=== PATIENT | female | born 1985 | race Hispanic/Latino ===

== ENCOUNTER 2022-01-20 21:14 | Emergency (ER) | payer OTHER ==
[2022-01-20] MEDS ORDERED: Ketorolac Tromethamine 30 MG/ML VIAL ONE (22:25)
== END 2022-01-20 22:25 | disposition home or self-care (01) ==
LOC: CSHERS 21:14
DX: K04.7 Periapical abscess without sinus (principal); E10.9 Type 1 diabetes mellitus without complications; Z79.4 Long term (current) use of insulin
CPT/HCPCS: 96372; 99282; J1885

== ENCOUNTER 2022-08-25 18:00 | Inpatient (IN) | payer OTHER ==
[2022-08-25 19:07] LABS: Actual Bicarbonate (HCO3a) 14.1 mEq/L (22-28); CO2 Tension 29.8 mmHg (35.0-45.0); Calcium, Ionized (arterial) 1.27 mmol/L (1.12-1.30); Carboxyhemoglobin (COHb) 0.6 gm% (0.0-3.0); Critical Notified By: CP.PH; Hemoglobin (Hb) 12.7 g/dL (12.0-16.0); O2 Tension (PaO2), arterial 102.4 mmHg (80.0-100.0); Potassium - ABG Lab 4.4 mmol/L (3.70-5.30); Puncture Site RRA; RapidComm Collect By CP.PH; pH, Arterial 7.29 (7.35-7.45)
[2022-08-25 19:19] LABS: BHCG - Serum Negative (NEGATIVE); Pregs Control Background? CLEAR/WHITE (CLR/WHITE); Pregs Control Bar Appear? YES (CONTROL BAR)
[2022-08-25 19:22] LABS: #Eosinphils 0.1 10x3/uL (0.0-0.5); #Monocytes 0.3 10x3/uL (0.0-1.1); #Neutrophils 5.7 10x3/uL (1.5-8.4); %Basophils 0.5 % (0.0-2.0); %Eosinophils 0.8 % (0.0-6.0); %Lymphocytes 18.6 % (18.0-47.0); %Monocytes 4.2 % (0.0-10.0); %Neutrophils 75.4 % (40.0-75.0); ALT (SGPT) 27 U/L (8-55); AST (SGOT) 18 U/L (5-34); Albumin 4.4 g/dL (3.5-5.0); Alkaline Phosphatase 166 U/L (40-110); Anion Gap 26 mmol/L (10-20); BUN (Urea Nitrogen) 16 mg/dL (7.0-18.7); Bilirubin, Total 0.5 mg/dL (0.2-1.2); Calc. Creatinine Clearance 0 mL/min (70-130); Calcium 9.4 mg/dL (7.8-10.44); Carbon Dioxide 13 mmol/L (22-29); Chloride 97 mmol/L (98-107); Estimated GFR 66; Globulin 3.1 g/dL (2.4-3.5); Hemoglobin 12.3 g/dL (12.0-15.5); Mean Corpuscular HGB CONC 33.2 g/dL (32.0-36.0); Mean Corpuscular Hemoglobin 28.7 pg (27.0-33.0); Mean Corpuscular Volume 86.7 fl (81.6-98.3); Mean Platelet Volume 11.3 fl (7.4-10.4); Platelet Count 283 10x3/uL (150-450); Potassium 4.6 mmol/L (3.5-5.1); Protein, Total 7.5 g/dL (6.0-8.3); RBC Distribution Width 12.8 % (11.5-14.5); Red Blood Cell (RBC) Count 4.28 10x6/uL (3.90-5.03); Sodium 131 mmol/L (136-145); White Blood Cell (WBC) Count 7.6 10x3/uL (3.5-10.5)
[2022-08-25 19:26] LABS: Glucose 505 mg/dL (70-105)
[2022-08-25] MEDS ORDERED: INSULIN REGULAR IN 0.9 % NACL 100 UNIT/100 ML BAG ONE (19:32)
[2022-08-25 19:36] LABS: Bilirubin Neg (Negative); Blood, Urine Negative (Negative); Clarity Clear (Clear); Glucose, Urine (Dipstick) >=1000 mg/dL (Negative); Ketone, Urine 150 mg/dL (Negative); Leukocyte Negative (Negative); Nitrite Negative (Negative); Protein, Urine (Dipstick) 15 mg/dl (Neg-Trace); Urobilinogen Normal mg/dL (Less than 2)
[2022-08-25 19:38] LABS: Pregnancy Test - Urine (BHCG) Negative (Negative); Pregu Control Background? CLEAR/WHITE (CLR/WHITE); Pregu Control Bar Appear? YES (CONTROL BAR)
[2022-08-25] MEDS ORDERED: Ondansetron PF 4 MG/2 ML Vial IVP PRN (19:50)
[2022-08-25] MEDS ORDERED: Guaifenesin DM 100-10/5 ML UDCUP PO PRN (19:50)
[2022-08-25] MEDS ORDERED: Ventolin HFA Inhaler 60 PUFF INHALER INH PRN (19:56)
[2022-08-25] MEDS ORDERED: Ondansetron PF 4 MG/2 ML Vial ONE (19:58)
[2022-08-25] MEDS ORDERED: INSULIN REGULAR IN 0.9 % NACL 100 UNIT in Premix Bag 1 BAG IVPB SCH (20:00)
[2022-08-25 20:13] LABS: Acetaminophen Less than 10.0 mcg/mL (10.0-30.0); Alcohol Less than 10 mg/dL (Less than 10); Salicylate Less than 8.0 mg/dL (15.0-30.0)
[2022-08-25] MEDS ORDERED: Famotidine/PF 20 mg/2ml Vial SLOW IVP SCH (21:00)
[2022-08-25 21:03] LABS: SARS-CoV-2 NAA Rapid Test Not Detected (NotDetected)
[2022-08-25 21:46] VITALS: BMI 16.5
[2022-08-25] MEDS: Acetaminophen 325 MG TAB PO PRN (22:06)
[2022-08-25] MEDS: Senokot S 8.6-50 MG TAB PO SCH (22:07)
[2022-08-25] MEDS: levETIRAcetam 500 MG TAB PO SCH (22:07)
[2022-08-25] MEDS ORDERED: SOAP SUDS ENEMA PR SCH (22:15)
[2022-08-25] MEDS: Lactated Ringer's 1,000 ML IV SCH (22:19)
[2022-08-25] MEDS: Dextrose 5%-Lactated Ringers 1,000 ML IV SCH (22:19)
[2022-08-25] MEDS ORDERED: Bisacodyl 10 MG SUPP PR PRN (23:16)
[2022-08-25 23:57] LABS: Anion Gap 15 mmol/L (10-20); BUN (Urea Nitrogen) 10 mg/dL (7.0-18.7); Calc. Creatinine Clearance 66 mL/min (70-130); Carbon Dioxide 18 mmol/L (22-29); Chloride 107 mmol/L (98-107); Estimated GFR 103; Glucose 125 mg/dL (70-105); Magnesium 1.6 mg/dL (1.6-2.6); Potassium 3.3 mmol/L (3.5-5.1); Sodium 137 mmol/L (136-145)
[2022-08-26 00:16] LABS: Phosphorus 1.4 mg/dL (2.3-4.7)
[2022-08-26] MEDS ORDERED: Potassium Chloride 20 MEQ TAB PO SCH (00:45)
[2022-08-26] MEDS ORDERED: Magnesium 2 GM/50 ML(in water) 2 GM in Premix Bag 1 BAG IVPB SCH (00:45)
[2022-08-26] MEDS ORDERED: Potassium Phosphate 30 MMOL in Sodium Chloride 0.9% 250 ML 250 ML IVPB SCH (01:00)
[2022-08-26 02:23] LABS: Amphetamine Not Detected (NotDetected); Barbiturates Screen Not Detected (NotDetected); Benzodiazepine Screen Not Detected (NotDetected); Cocaine Metabolite Screen Not Detected (NotDetected); Methadone Not Detected (NotDetected); Methamphetamine Not Detected (NotDetected); Opiate Screen Not Detected (NotDetected); Oxycodone Screen Not Detected (NotDetected); Phencyclidine (PCP) Not Detected (NotDetected); THC/Cannabinoid Screen Not Detected (NotDetected); Tricyclic Screen Not Detected (NotDetected)
[2022-08-26] MEDS: Acetaminophen 325 MG TAB PO PRN ×2 (03:34→12:15)
[2022-08-26 03:47] LABS: #Basophils 0.1 10x3/uL (0.0-0.2); #Eosinphils 0.2 10x3/uL (0.0-0.5); #Monocytes 0.6 10x3/uL (0.0-1.1); #Neutrophils 4.6 10x3/uL (1.5-8.4); %Basophils 0.7 % (0.0-2.0); %Eosinophils 2.6 % (0.0-6.0); %Lymphocytes 28.6 % (18.0-47.0); %Monocytes 7.5 % (0.0-10.0); %Neutrophils 60.3 % (40.0-75.0); Hemoglobin 11.1 g/dL (12.0-15.5); Mean Corpuscular HGB CONC 32.8 g/dL (32.0-36.0); Mean Corpuscular Hemoglobin 28.7 pg (27.0-33.0); Mean Corpuscular Volume 87.3 fl (81.6-98.3); Mean Platelet Volume 10.9 fl (7.4-10.4); Platelet Count 238 10x3/uL (150-450); RBC Distribution Width 12.9 % (11.5-14.5); Red Blood Cell (RBC) Count 3.87 10x6/uL (3.90-5.03); White Blood Cell (WBC) Count 7.6 10x3/uL (3.5-10.5)
[2022-08-26 03:49] LABS: Actual Bicarbonate (HCO3v) 18 mEq/L (22-28); Base Excess -6.2 mEq/L (-2 - +2); Calcium, Ionized (venous) 1.04 mmol/L (1.16-1.32); Chloride (VBG) 105 mmol/L (98-106); Critical Notified By: CP.PH; Hemoglobin (Hb) 11.9 g/dL (11.7-15.5); Potassium (VBG) 3.95 mmol/L (3.70-5.30); Puncture Site Other Site; Sodium 138.3 mmol/L (133-146); pH (venous) 7.37 (7.32-7.43)
[2022-08-26 04:07] LABS: Anion Gap 14 mmol/L (10-20); BUN (Urea Nitrogen) 8 mg/dL (7.0-18.7); Calc. Creatinine Clearance 69 mL/min (70-130); Carbon Dioxide 18 mmol/L (22-29); Chloride 107 mmol/L (98-107); Estimated GFR 108; Glucose 129 mg/dL (70-105); Magnesium 2.5 mg/dL (1.6-2.6); Potassium 3.9 mmol/L (3.5-5.1); Sodium 135 mmol/L (136-145)
[2022-08-26] MEDS: Lactated Ringer's 1,000 ML IV SCH ×3 (04:21→19:40)
[2022-08-26] MEDS: Dextrose 5%-Lactated Ringers 1,000 ML IV SCH (06:41)
[2022-08-26] MEDS: levETIRAcetam 500 MG TAB PO SCH ×3 (08:37→20:16)
[2022-08-26] MEDS: Multivitamin W/ Minerals 1 TAB PO SCH ×2 (08:37→11:20)
[2022-08-26] MEDS: Senokot S 8.6-50 MG TAB PO SCH ×3 (08:37→20:16)
[2022-08-26] MEDS: Polyethylene Glycol 3350 17 GM Packet PO SCH ×2 (08:38→11:21)
[2022-08-26] MEDS: Pancrelipase DR 12,000 1 CAP PO SCH ×3 (08:38→17:23)
[2022-08-26] MEDS: Famotidine/PF 20 mg/2ml Vial SLOW IVP SCH ×2 (08:38→20:17)
[2022-08-26 08:39] LABS: Anion Gap 16 mmol/L (10-20); BUN (Urea Nitrogen) 7 mg/dL (7.0-18.7); Calc. Creatinine Clearance 71 mL/min (70-130); Calcium 7.7 mg/dL (7.8-10.44); Carbon Dioxide 17 mmol/L (22-29); Chloride 107 mmol/L (98-107); Estimated GFR 112; Glucose 210 mg/dL (70-105); Magnesium 2.2 mg/dL (1.6-2.6); Phosphorus 3.4 mg/dL (2.3-4.7); Potassium 4.5 mmol/L (3.5-5.1); Sodium 135 mmol/L (136-145)
[2022-08-26] MEDS ORDERED: FLU VACC QS2022-23(6MOS UP)/PF 60 MCG/0.5 ML SYRINGE IM ONE (09:00)
[2022-08-26 10:59] LABS: Anion Gap 11 mmol/L (10-20); BUN (Urea Nitrogen) 6 mg/dL (7.0-18.7); Calc. Creatinine Clearance 77 mL/min (70-130); Calcium 7.7 mg/dL (7.8-10.44); Carbon Dioxide 23 mmol/L (22-29); Chloride 109 mmol/L (98-107); Estimated GFR 117; Glucose 118 mg/dL (70-105); Magnesium 2.1 mg/dL (1.6-2.6); Potassium 3.6 mmol/L (3.5-5.1); Sodium 139 mmol/L (136-145)
[2022-08-26 11:37] LABS: Phosphorus 1.6 mg/dL (2.3-4.7)
[2022-08-26] MEDS ORDERED: Lantus 1000 UNITS/10 ML VIAL SC SCH (12:00)
[2022-08-26] MEDS: Sodium Chloride 0.45% 1,000 ML IV SCH (12:13)
[2022-08-26] MEDS ORDERED: Dextrose 50% Abboject 50 ML SYRINGE SLOW IVP PRN (12:49)
[2022-08-26] MEDS ORDERED: Dextrose 5% in Water 1,000 ML IV PRN (12:49)
[2022-08-26] MEDS: Fioricet 325/50/40 mg Tablet PO PRN (13:38)
[2022-08-26 14:27] LABS: Hemoglobin A1c 12.4 % (4.0-6.0)
[2022-08-26] MEDS: HumaLOG 300 UNITS/3 ML VIAL SC PRN (15:23)
[2022-08-26] MEDS: Lantus 1000 UNITS/10 ML VIAL SC SCH (20:17)
[2022-08-27] MEDS: Sodium Chloride 0.45% 1,000 ML IV SCH ×2 (00:50→14:13)
[2022-08-27] MEDS: Lactated Ringer's 1,000 ML IV SCH ×3 (04:43→20:02)
[2022-08-27] MEDS: Pancrelipase DR 12,000 1 CAP PO SCH ×3 (08:27→17:30)
[2022-08-27] MEDS: levETIRAcetam 500 MG TAB PO SCH ×2 (08:27→20:27)
[2022-08-27] MEDS: Senokot S 8.6-50 MG TAB PO SCH ×2 (08:27→20:27)
[2022-08-27] MEDS: Multivitamin W/ Minerals 1 TAB PO SCH (08:27)
[2022-08-27] MEDS: Famotidine/PF 20 mg/2ml Vial SLOW IVP SCH ×2 (08:28→20:27)
[2022-08-27] MEDS: Polyethylene Glycol 3350 17 GM Packet PO SCH (08:28)
[2022-08-27] MEDS: Lantus 1000 UNITS/10 ML VIAL SC SCH ×2 (08:42→20:27)
[2022-08-27] MEDS ORDERED: Lantus 1000 UNITS/10 ML VIAL SC SCH (09:00)
[2022-08-27 09:17] LABS: Anion Gap 10 mmol/L (10-20); BUN (Urea Nitrogen) 4 mg/dL (7.0-18.7); Calc. Creatinine Clearance 89 mL/min (70-130); Calcium 8.5 mg/dL (7.8-10.44); Carbon Dioxide 25 mmol/L (22-29); Chloride 103 mmol/L (98-107); Estimated GFR 121; Glucose 146 mg/dL (70-105); Phosphorus 1.6 mg/dL (2.3-4.7); Potassium 3.4 mmol/L (3.5-5.1); Sodium 135 mmol/L (136-145)
[2022-08-27] MEDS: Fioricet 325/50/40 mg Tablet PO PRN (09:29)
[2022-08-27] MEDS: HumaLOG 300 UNITS/3 ML VIAL SC PRN (11:30)
[2022-08-27] MEDS ORDERED: Potassium Chloride 20 MEQ TAB PO SCH (11:45)
[2022-08-27] MEDS ORDERED: Electrolyte Replacement Protocol 1 EACH FS SCH (11:45)
[2022-08-27] MEDS ORDERED: Potassium Phosphate 30 MMOL in Sodium Chloride 0.9% 250 ML 250 ML IVPB SCH (11:45)
[2022-08-27] MEDS: Metoclopramide HCl 10 MG/2 ML VIAL IVP SCH ×2 (17:30→20:27)
[2022-08-27] MEDS ORDERED: Mineral Oil ENEMA PR SCH (18:00)
[2022-08-27] MEDS ORDERED: Mineral Oil ENEMA PR PRN (18:00)
[2022-08-28] MEDS: Lactated Ringer's 1,000 ML IV SCH ×2 (01:07→01:20)
[2022-08-28 05:25] LABS: #Eosinphils 0.2 10x3/uL (0.0-0.5); #Monocytes 0.6 10x3/uL (0.0-1.1); #Neutrophils 4.3 10x3/uL (1.5-8.4); %Basophils 0.5 % (0.0-2.0); %Lymphocytes 39.6 % (18.0-47.0); %Monocytes 6.6 % (0.0-10.0); %Neutrophils 51.1 % (40.0-75.0); Hemoglobin 10.9 g/dL (12.0-15.5); Mean Corpuscular HGB CONC 32.9 g/dL (32.0-36.0); Mean Corpuscular Hemoglobin 28.7 pg (27.0-33.0); Mean Corpuscular Volume 87.1 fl (81.6-98.3); Mean Platelet Volume 11.4 fl (7.4-10.4); Platelet Count 220 10x3/uL (150-450); RBC Distribution Width 12.8 % (11.5-14.5); White Blood Cell (WBC) Count 8.5 10x3/uL (3.5-10.5)
[2022-08-28 05:41] LABS: Anion Gap 10 mmol/L (10-20); BUN (Urea Nitrogen) 7 mg/dL (7.0-18.7); Calc. Creatinine Clearance 92 mL/min (70-130); Calcium 8.6 mg/dL (7.8-10.44); Carbon Dioxide 26 mmol/L (22-29); Chloride 106 mmol/L (98-107); Estimated GFR 123; Glucose 56 mg/dL (70-105); Phosphorus 2.2 mg/dL (2.3-4.7); Potassium 3.4 mmol/L (3.5-5.1); Sodium 139 mmol/L (136-145)
[2022-08-28] MEDS: Sodium Chloride 0.45% 1,000 ML IV SCH ×2 (06:19→22:00)
[2022-08-28] MEDS ORDERED: Potassium Chloride 20 MEQ TAB PO SCH (08:00)
[2022-08-28] MEDS ORDERED: Magnesium 2 GM/50 ML(in water) 2 GM in Premix Bag 1 BAG IVPB SCH (08:00)
[2022-08-28] MEDS: Metoclopramide HCl 10 MG/2 ML VIAL IVP SCH ×5 (10:46→21:03)
[2022-08-28] MEDS: levETIRAcetam 500 MG TAB PO SCH ×2 (10:47→21:01)
[2022-08-28] MEDS: Famotidine/PF 20 mg/2ml Vial SLOW IVP SCH ×2 (10:47→21:03)
[2022-08-28] MEDS: Polyethylene Glycol 3350 17 GM Packet PO SCH (10:47)
[2022-08-28] MEDS: Multivitamin W/ Minerals 1 TAB PO SCH (10:47)
[2022-08-28] MEDS: Senokot S 8.6-50 MG TAB PO SCH ×2 (10:48→21:00)
[2022-08-28] MEDS: Pancrelipase DR 12,000 1 CAP PO SCH ×3 (10:51→17:44)
[2022-08-28] MEDS: Lantus 1000 UNITS/10 ML VIAL SC SCH ×2 (10:56→21:13)
[2022-08-28] MEDS ORDERED: FLUoxetine HCl 20 MG CAP PO SCH (20:30)
[2022-08-28] MEDS: Mirtazapine 15 MG TAB PO SCH (21:02)
[2022-08-29] MEDS: Senokot S 8.6-50 MG TAB PO SCH ×3 (00:52→20:53)
[2022-08-29] MEDS: Lactated Ringer's 1,000 ML IV SCH ×4 (00:52→20:53)
[2022-08-29 04:57] LABS: Phosphorus 2.4 mg/dL (2.3-4.7); Potassium 3.6 mmol/L (3.5-5.1)
[2022-08-29 05:01] LABS: Anion Gap 10 mmol/L (10-20); BUN (Urea Nitrogen) 12 mg/dL (7.0-18.7); Calc. Creatinine Clearance 92 mL/min (70-130); Calcium 8.4 mg/dL (7.8-10.44); Carbon Dioxide 26 mmol/L (22-29); Chloride 106 mmol/L (98-107); Estimated GFR 123; Glucose 66 mg/dL (70-105); Magnesium 2.3 mg/dL (1.6-2.6); Potassium 3.6 mmol/L (3.5-5.1); Sodium 138 mmol/L (136-145)
[2022-08-29] MEDS: levETIRAcetam 500 MG TAB PO SCH ×2 (10:15→20:44)
[2022-08-29] MEDS: Pancrelipase DR 12,000 1 CAP PO SCH ×3 (10:15→16:15)
[2022-08-29] MEDS: Polyethylene Glycol 3350 17 GM Packet PO SCH (10:15)
[2022-08-29] MEDS: FLUoxetine HCl 20 MG CAP PO SCH (10:16)
[2022-08-29] MEDS: Multivitamin W/ Minerals 1 TAB PO SCH (10:17)
[2022-08-29] MEDS: Famotidine/PF 20 mg/2ml Vial SLOW IVP SCH ×2 (10:17→20:44)
[2022-08-29] MEDS: Metoclopramide HCl 10 MG/2 ML VIAL IVP SCH ×4 (10:17→20:44)
[2022-08-29] MEDS: Lantus 1000 UNITS/10 ML VIAL SC SCH ×2 (10:27→20:48)
[2022-08-29] MEDS: HumaLOG 300 UNITS/3 ML VIAL SC PRN ×2 (10:29→16:41)
[2022-08-29] MEDS: Sodium Chloride 0.45% 1,000 ML IV SCH (11:14)
[2022-08-29] MEDS: Mirtazapine 15 MG TAB PO SCH (20:42)
[2022-08-30] MEDS: Lactated Ringer's 1,000 ML IV SCH (05:18)
[2022-08-30 05:19] LABS: ALT (SGPT) 24 U/L (8-55); AST (SGOT) 21 U/L (5-34); Albumin 3.2 g/dL (3.5-5.0); Alkaline Phosphatase 94 U/L (40-110); Anion Gap 11 mmol/L (10-20); BUN (Urea Nitrogen) 11 mg/dL (7.0-18.7); Bilirubin, Total 0.2 mg/dL (0.2-1.2); Calc. Creatinine Clearance 96 mL/min (70-130); Calcium 8.4 mg/dL (7.8-10.44); Carbon Dioxide 26 mmol/L (22-29); Chloride 106 mmol/L (98-107); Estimated GFR 124; Globulin 2.4 g/dL (2.4-3.5); Glucose 67 mg/dL (70-105); Potassium 3.5 mmol/L (3.5-5.1); Protein, Total 5.6 g/dL (6.0-8.3); Sodium 139 mmol/L (136-145)
[2022-08-30] MEDS ORDERED: Potassium Chloride 20 MEQ TAB PO SCH (06:00)
[2022-08-30 07:19] VITALS: BP 96/54; TEMP 98.1
[2022-08-30] MEDS: Metoclopramide HCl 10 MG/2 ML VIAL IVP SCH (08:45)
[2022-08-30] MEDS: Polyethylene Glycol 3350 17 GM Packet PO SCH (08:45)
[2022-08-30] MEDS: levETIRAcetam 500 MG TAB PO SCH (08:46)
[2022-08-30] MEDS: Pancrelipase DR 12,000 1 CAP PO SCH (08:46)
[2022-08-30] MEDS: Lantus 1000 UNITS/10 ML VIAL SC SCH (08:46)
[2022-08-30] MEDS: Famotidine/PF 20 mg/2ml Vial SLOW IVP SCH (08:46)
[2022-08-30] MEDS: Multivitamin W/ Minerals 1 TAB PO SCH (08:46)
[2022-08-30] MEDS: FLUoxetine HCl 20 MG CAP PO SCH (08:46)
[2022-08-30] MEDS: Senokot S 8.6-50 MG TAB PO SCH (08:47)
[2022-08-30] MEDS ORDERED: Lantus 1000 UNITS/10 ML VIAL SC SCH (21:00)
== END 2022-08-30 10:07 | disposition home or self-care (01) | DRG 637 ==
LOC: CSHERS 18:00 → CSHICU 21:21 → CSHTELE 08-27 16:07
PROVIDERS: ADMIT Student in an Organized Health Care Education/Training Program; ATTEND Family Medicine
PROC: 4A133R1 Monitoring of Arterial Saturation, Peripheral, Percutaneous Approach (ICD-10-PCS; principal; 2022-08-25)
DX: E10.10 Type 1 diabetes mellitus with ketoacidosis without coma (principal); G93.41 Metabolic encephalopathy; N17.9 Acute kidney failure, unspecified; R64 Cachexia; E44.0 Moderate protein-calorie malnutrition; K86.1 Other chronic pancreatitis; Z68.1 Body mass index [BMI] 19.9 or less, adult; Z20.822 Contact with and (suspected) exposure to COVID-19; D64.9 Anemia, unspecified; F12.10 Cannabis abuse, uncomplicated; F32.A Depression, unspecified; J45.909 Unspecified asthma, uncomplicated; E86.0 Dehydration; R51.9 Headache, unspecified; G40.909 Epilepsy, unspecified, not intractable, without status epilepticus; K59.00 Constipation, unspecified; Z88.6 Allergy status to analgesic agent; Z88.5 Allergy status to narcotic agent; Z88.0 Allergy status to penicillin; Z79.899 Other long term (current) drug therapy; Z79.4 Long term (current) use of insulin; Z87.442 Personal history of urinary calculi
CPT/HCPCS: 36415; 36416; 36600; 51701; 70450; 71045; 74018; 74176; 80048; 80053; 80306; 80307; 81003; 81025; 82010; 82805; 83036; 83605; 83690; 83735; 84100; 84443; 84703; 85025; 93005; 94760; 96361; 96374; 96375; J1650; J1815; J2405; J2765; J3475; J7050; J7070; J7120; S0028; U0002